=== PATIENT | female | born 2005 | race African-American/Black ===

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

== ENCOUNTER 2025-01-17 16:02 | Emergency (ER) | payer MEDICAID ==
[~2025-01-17] VITALS: Ht 167.6 cm; Wt 116.8 kg
[2025-01-17 16:08] VITALS: TEMP 36.7; O2SAT 97
[2025-01-17] MEDS ORDERED: AMOX1TAB16 MT (18:09)
[2025-01-17] MEDS ORDERED: OFLO5DRO4 EACH EAR (18:09)
[2025-01-17 18:21] VITALS: BP 132/83; PULSE 74; RESP 18; O2SAT 99
== END 2025-01-17 18:23 | disposition home or self-care (01) ==
LOC: ER 16:02
DX: H66.93 Otitis media, unspecified, bilateral (principal); H60.93 Unspecified otitis externa, bilateral; J45.909 Unspecified asthma, uncomplicated; Z79.899 Other long term (current) drug therapy
CPT/HCPCS: 99283